=== PATIENT | male | born 1955 | race Caucasian/White ===

== ENCOUNTER → 2025-03-17 08:25 | Outpatient (REF) | payer MEDICARE, OTHER, SELFPAY | LOC: HWRAD 08:25 | DX: G89.29 Other chronic pain (principal); M25.511 Pain in right shoulder | CPT/HCPCS: 73030 ==

== ENCOUNTER → 2025-09-07 08:07 | Outpatient (REF) | payer MEDICARE, OTHER, SELFPAY | LOC: HWRAD 08:07 | DX: M25.562 Pain in left knee (principal) | CPT/HCPCS: 73564 ==